=== PATIENT | male | born 1975 | race American Indian/Alaskan Native ===

== ENCOUNTER 2022-01-03 01:01 | Emergency (ER) | payer SELFPAY ==
[2022-01-03] MEDS ORDERED: IBUPROFEN 800 MG TAB PO ONE (05:27)
[2022-01-03] MEDS ORDERED: ACETAMINOPHEN 325 MG TAB PO ONE (05:27)
[2022-01-03] MEDS ORDERED: diphenhydrAMINE 25 MG CAP PO ONE (08:17)
[2022-01-03] MEDS ORDERED: METOCLOPRAMIDE 10 MG TAB PO ONE (08:18)
[2022-01-03] MEDS ORDERED: BUTALB/ACETAMINOPHEN/CAFFEINE TAB PO ONE (08:18)
[2022-01-03] MEDS ORDERED: dexAMETHasone 4 MG/ML VIAL IM ONE (08:18)
--- NOTE | 2022-01-03 08:51 | Cat Scan Report ---
CT HEAD WITHOUT CONTRAST INDICATION / CLINICAL INFORMATION: unusual salomon. TECHNIQUE: All CT scans at this location are performed using CT dose reduction for ALARA by means of automated exposure control. COMPARISON: None available. FINDINGS: BRAIN PARENCHYMA: No acute intracranial hemorrhage. No evidence of recent infarct. No mass effect or midline shift. VENTRICULAR SYSTEM/EXTRA-AXIAL SPACES: Ventricles are normal for age. No extra-axial fluid collection . ORBITS: Normal as visualized. SKELETAL SYSTEM/SOFT TISSUES: Normal bones and soft tissues. PARANASAL SINUSES/MASTOID AIR CELLS: No significant abnormality. ADDITIONAL FINDINGS: None. IMPRESSION: 1. No acute intracranial abnormality. Signer Name: uSkh Ventura MD Signed: 01/03/2022 8:47 AM Workstation Name: [id number]
--- NOTE | 2022-01-03 09:33 | Emergency Department Report ---
ED Headache HPI - General Chief Complaint: Earache Time Seen by Provider: 01/03/22 08:04 - History of Present Illness Initial Comments: 46-year-old black male with a past medical history of hypertension and hypothyroidism presents to the emergency department for evaluation of 1 week history of headache. He states that his headache has been persistent and severe every day for the last week despite use of Tylenol. He states that pain is in the back of his head and radiates all the way to the front with pressure behind his eyes. He states that he has had some associated dizziness but denies nausea, vomiting, and vision changes. He states that pain is 10 out of 10 and concerns him because he usually does not have headaches and when he does he will take 1 Tylenol and it goes away.He is also requesting a refill of his hypertension medication. Timing/Duration: 1 week, other Quality: severe Head Injury Location: frontal, occipital Associated Symptoms: facial pain, other (Dizziness). denies: confusion, fatigue, fever/chills, flushing, loss of consciousness, nausea/vomiting, nasal congestion, nasal drainage, seizures, vision changes, weakness Allergies/Adverse Reactions: Allergies No Known Allergies Allergy (Verified 01/03/22 05:26) Home Medications: Ambulatory Orders Butalb/Acetaminophen/Caffeine [Fioricet 50-300-40 mg CAP] 1 cap PO Q8HR PRN #12 cap 01/03/22 amLODIPine 10 mg PO DAILY #30 tab 01/03/22 methylPREDNISolone [Medrol 4MG DOSEPAK (21 tabs)] 4 mg PO DAILY #1 pack 01/03/22 ED Review of Systems ROS: Stated complaint: Other details as noted in HPI Comment: All other systems reviewed and negative Constitutional: denies: chills, fever, weakness Eyes: eye pain. denies: vision change ENT: congestion Respiratory: denies: cough, shortness of breath Cardiovascular: denies: chest pain, palpitations, dyspnea on exertion, orthopnea, edema, syncope, paroxysmal nocturnal dyspnea Gastrointestinal: denies: abdominal pain, nausea, vomiting, diarrhea, hematemesis, melena, hematochezia Genitourinary: denies: urgency, dysuria, frequency, hematuria Musculoskeletal: denies: back pain Neurological: headache. denies: weakness, numbness, confusion, abnormal gait, vertigo ED Past Medical Hx - Medications Home Medications: Home Medications Medication Instructions Recorded Confirmed Last Taken Type Butalb/Acetaminophen/Caffeine 1 cap PO Q8HR PRN #12 cap 01/03/22 Unknown Rx [Fioricet 50-300-40 mg CAP] amLODIPine 10 mg PO DAILY #30 tab 01/03/22 Unknown Rx methylPREDNISolone [Medrol 4MG 4 mg PO DAILY #1 pack 01/03/22 Unknown Rx DOSEPAK (21 tabs)] ED Physical Exam - General Limitations: No Limitations General appearance: alert, in no apparent distress - Head Head exam: Present: atraumatic, normocephalic - Eye Eye exam: Present: normal appearance, PERRL. Absent: conjunctival injection, periorbital swelling, periorbital tenderness - ENT ENT exam: Absent: normal exam (Bilateral nasal mucosal edema and bilateral swelling of turbinates. Tenderness to bilateral frontal and maxillary sinus areas), normal orophraynx (Erythema noted to posterior oropharynx) - Expanded ENT Exam Expanded Throat exam: Negative: tonsillar erythema, tonsillomegaly, tonsillar exudate, R peritonsillar mass, L peritonsillar mass - Neck Neck exam: Present: normal inspection, full ROM. Absent: tenderness, lymphadenopathy - Respiratory Respiratory exam: Present: normal lung sounds bilaterally, chest wall tenderness. Absent: respiratory distress, wheezes, rales, rhonchi, stridor - Cardiovascular Cardiovascular Exam: Present: regular rate, normal heart sounds - GI/Abdominal GI/Abdominal exam: Present: soft, normal bowel sounds. Absent: distended, tenderness, guarding, rebound, rigid - Extremities Exam Extremities exam: Present: normal inspection, normal capillary refill. Absent: pedal edema, joint swelling, calf tenderness - Back Exam Back exam: Present: normal inspection. Absent: CVA tenderness (R), CVA tenderness (L), vertebral tenderness - Neurological Exam Neurological exam: Present: alert, oriented X3, CN II-XII intact, normal gait, reflexes normal. Absent: motor sensory deficit - Expanded Neurological Exam Expanded Patient oriented to: Present: person, place, time Speech: Present: fluid speech Cranial nerves: EOM's Intact: Normal Ataxia: Absent: yes Motor strength exam: RUE: 5, LUE: 5, RLE: 5, LLE: 5 Best Eye Response (Maye): (4) open spontaneously Best Motor Response (Streator): (6) obeys commands Best Verbal Response (Streator): (5) oriented Streator Total: 15 - Psychiatric Psychiatric exam: Present: normal affect, normal mood - Skin Skin exam: Present: warm, dry, intact, normal color ED Course Vital Signs 01/03/22 01/03/22 03:03 09:53 Temperature 99 F 98.5 F Pulse Rate 84 66 Respiratory 18 16 Rate Blood Pressure 154/102 142/86 [Right] O2 Sat by Pulse 100 100 Oximetry - Reevaluation(s) Reevaluation #1: 01/03/22 09:29 Headache slightly improved. ED Medical Decision Making - Radiology Data Radiology results: report reviewed, image reviewed CT head without contrast: FINDINGS: BRAIN PARENCHYMA: No acute intracranial hemorrhage. No evidence of recent infarct. No mass effect or midline shift. VENTRICULAR SYSTEM/EXTRA-AXIAL SPACES: Ventricles are normal for age. No extra- axial fluid collection. ORBITS: Normal as visualized. SKELETAL SYSTEM/SOFT TISSUES: Normal bones and soft tissues. PARANASAL SINUSES/MASTOID AIR CELLS: No significant abnormality. ADDITIONAL FINDINGS: None. IMPRESSION: 1. No acute intracranial abnormality. - Medical Decision Making 46-year-old black male with a past medical history of hypertension and hypothyroidism presents to the emergency department for evaluation of 1 week history of headache. He states that his headache has been persistent and severe every day for the last week despite use of Tylenol. He states that pain is in the back of his head and radiates all the way to the front with pressure behind his eyes. He states that he has had some associated dizziness but denies nausea, vomiting, and vision changes. He states that pain is 10 out of 10 and concerns him because he usually does not have headaches and when he does he will take 1 Tylenol and it goes away. He is also requesting a refill of his hypertension medication. Physical exam unremarkable. CT head without any acute abnormalities noted. Headache improved after medications. Patient will be discharged home with Medrol Dosepak and Fioricet to take as directed. Prescription for amlodipine refilled. Patient advised to take medication as prescribed and follow-up with primary care provider if no improvement or worsening symptoms. He verbalizes understanding of and agreement with plan of care. Critical care attestation.: If time is entered above; I have spent that time in minutes in the direct care o f this critically ill patient, excluding procedure time. ED Disposition Clinical Impression: Medication refill Headache Qualifiers: Headache type: unspecified Headache chronicity pattern: acute headache Intractability: not intractable Qualified Code(s): R51.9 - Headache, unspecified Disposition: 01 HOME / SELF CARE / HOMELESS Is pt being admited?: No Does the pt Need Aspirin: No Condition: Stable Prescriptions: amLODIPine 10 mg PO DAILY #30 tab Butalb/Acetaminophen/Caffeine [Fioricet 50-300-40 mg CAP] 1 cap PO Q8HR PRN #12 cap PRN Reason: Headache methylPREDNISolone [Medrol 4MG DOSEPAK (21 tabs)] 4 mg PO DAILY #1 pack Referrals: ALEC SWEENEY MD [Primary Care Provider] - 3-5 Days Forms: Work/School Release Form(ED) Time of Disposition: 09:32
[2022-01-03 09:54] VITALS: BP 142/86
== END 2022-01-03 09:54 | disposition home or self-care (01) ==
LOC: ED 01:01
DX: R51.9 Headache, unspecified (principal); Z76.0 Encounter for issue of repeat prescription
CPT/HCPCS: 70450; 96372; 99283; J1100